=== PATIENT | female | born 1970 | race Caucasian/White ===

== ENCOUNTER 2024-12-11 20:01 | Emergency (ER) | payer OTHER, SELFPAY ==
[2024-12-11 20:03] VITALS: BP 138/96
[2024-12-11 20:30] LABS: Urine Character Clear (Clear)
[2024-12-11 20:34] LABS: Hematocrit 39.2 % (37.0-47.0); Hemoglobin 13.4 g/dL (12.0-16.0); Mean Corp Hgb Conc. 34.2 g/dL (33.0-37.0); Mean Corpuscular Volume 95.4 fL (81.0-99.0); Nucleated Red Blood Cells % 0 %; Platelet Count 193 10^3/uL (130-400); Red Cell Dist. Width 12.3 % (11.5-14.5)
[2024-12-11 20:35] LABS: Urine Red Blood Cell 0-2 /HPF (0-2); Urine Squamous Cell 16-20 /LPF (Few); Urine White Cell 0-2 /HPF (0-5)
[2024-12-11 20:57] LABS: Blood Urea Nitrogen 18 mg/dl (7-17); Calcium 10.0 mg/dl (8.4-10.2); Carbon Dioxide 25 mmol/L (22-30); Chloride 103 mmol/L (98-107); Glucose 101 mg/dl (70-99); Lipase 86 U/L (23-300); Sodium 135 mmol/L (135-145); eGFR > 60.00
[2024-12-12 00:05] VITALS: BP 117/69
--- NOTE | 2024-12-12 00:14 | EDRN ---
patient updated on ultrasound, drinking water to prepare
[2024-12-12 00:42] LABS: HCG, Serum Qualitative Screen Negative
--- NOTE | 2024-12-12 01:52 | ED.GENMED ---
History of Present Illness
General
Chief Complaint: Abdominal Pain
Source: patient and spouse
Exam Limitations: none
Time Seen by Provider: 12/11/24 22:11
Nursing documentation reviewed up to this point in time: agreed with
History of Present Illness
History of Present Illness:
Note:
CHIEF COMPLAINT(S)
Abdominal pain.
HISTORY OF PRESENT ILLNESS
The patient is a 54-year-old female presenting with abdominal pain experienced since the morning of the visit. The patient initially described the pain as a 'gas kind of problem.' Over time, the pain localized to the lower abdomen. The patient
reported that any touch increases the pain, although she noted improvements as time progressed. She likened the pain to menstrual cramping, stating, 'kind of maybe,' when asked about it. No accompanying respiratory symptoms like trouble breathing,
chest pain, or shortness of breath were reported. Additionally, the patient denied experiencing any problems with urination. She mentioned the pain was present upon touch but indicated it was better than earlier.
PLAN
An ultrasound of the ovaries is planned to rule out ovarian torsion. The patient will be instructed to drink fluids to fill the bladder prior to the ultrasound.
PHYSICAL EXAM
General: Alert, no acute distress.
Skin: Warm, dry.
Head: Normocephalic, atraumatic.
Neck: Supple, trachea midline.
Eye, Ears, Nose, Mouth, and Throat: Oral mucosa moist.
Cardiovascular: Normal peripheral perfusion, no edema.
Respiratory: Respirations are non-labored, lung auscultation normal.
Gastrointestinal: Pain in the lower abdomen upon palpation.
Back: No costovertebral angle tenderness.
Musculoskeletal: Normal range of motion, normal strength.
Neurological: Alert and oriented to person, place, time, and situation, no focal neurological deficit observed.
Psychiatric: Cooperative, appropriate mood and affect.
DIFFERENTIAL DIAGNOSIS
The Differential Diagnosis includes, in no particular order and is not limited to:
1. Ovarian torsion
2. Gastroenteritis
3. Urinary tract infection
4. Diverticulitis
5. Appendicitis
6. Pelvic inflammatory disease
7. Endometriosis
8. Irregular uterine bleeding
9. Renal colic
10. Irritable bowel syndrome
CARE-UPDATE
12/12/24 - 01:53
Ultrasound reveals a fibroid at the uterine fundus, 6.8 cm in diameter, likely intramural or subserosal. An intrauterine contraceptive device is present in the endometrial cavity. Endometrial thickness measures 5 mm. Both ovaries appear normal with
no evidence of torsion and no free fluid present.
Disposition:
SUMMARY OF ENCOUNTER
The patient is a 54-year-old female who presented to the emergency department with lower abdominal pain. After evaluation, an ultrasound was performed which showed no abnormalities. There was a finding of blood in the urine. The patients pain
significantly improved during her stay. Despite not having an exact diagnosis, the patient expressed a desire to be discharged and declined further imaging, stating her intention to return if the pain persists and to follow up with her [employer].
DISPOSITION
Discharge
ASSESSMENT
The patient presented with lower abdominal pain. Possible causes include urinary tract infection or other urinary symptoms suggested by the presence of blood in the urine. The ultrasound ruled out ovarian torsion and the patients pain improved
significantly.
PLAN
The patient is advised to follow up with her [employer] and to return to the emergency department if the pain persists or worsens.
INDEPENDENT REVIEW OF LABS AND INTERPRETATION OF TESTS
My independent review of the ultrasound was negative for any acute pathology such as ovarian torsion.
PATIENT EDUCATION AND COUNSELING
The patient was informed about the findings and was advised on the importance of follow-up with her [employer]. She was counseled to return if the symptoms persist or worsen.
FOLLOW-UP INSTRUCTIONS
Please follow up with [employer] and return to the emergency department if the pain persists or worsens.
MEDICAL DECISION MAKING
-Complexity of Data Reviewed: The differential diagnosis included ovarian torsion, urinary tract infection, diverticulitis, appendicitis, pelvic inflammatory disease, endometriosis, irregular uterine bleeding, renal colic, and irritable bowel
syndrome.
-Data:
Category 1
An ultrasound was independently reviewed.
Category 3
Discussion of management with the patient regarding the refusal of further imaging and the decision to discharge with the intention to follow up with [employer].
-Risk:
Consideration of Admission/Observation: Escalation of care including admission/observation was considered given the complexity and risk of the patients presenting complaint, exam findings, and/or underlying comorbidities. However, ultimately, I feel
the patient is safe for outpatient management with close follow up. Reasoning: Work-up reassuring, does not reveal any acute life/organ threatening processes, patients symptoms well controlled upon reevaluation, reexamination is reassuring, vitals
are stable, patient agreeable with discharge, reliable for follow-up.
DIAGNOSIS
1. Hematuria (R31.9)
2. Abdominal pain, unspecified (R10.9)
Phy Exam
Physical Exam
Physical Exam:
.
Course
Orders/Labs/Results
Orders:
Orders
12/11/24 20:18
Basic Metabolic Panel Urgent
Complete Blood Count/With Diff Urgent
HCG, Serum Qualitative Screen Urgent
Comment: ADDED
Lipase Urgent
12/11/24 20:21
Urinalysis Reflex To Culture Urgent
Date Specimen was Collected: 12/11/24
Time Specimen was Collected: 20:07
Urine Microscopic Reflex Cult Urgent
12/11/24 23:01
US Pelvis W Transvag Combined Urgent
Reason For Exam: pelvic pain
12/11/24 23:02
Add On- LAB Urgent
Tests Added?: serum hcg
12/12/24 01:51
Acetaminophen [Tylenol] 1,000 mg .ROUTE .STK-MED ONE
12/12/24 01:52
Acetaminophen [Tylenol] 1,000 mg PO NOW STA
Abnormal Lab Results
12/11/24 12/11/24
20:18 20:21
RBC 4.11 L 10^6/uL
(4.20-5.40)
MCH 32.6 H pg
(27.0-31.0)
Absolute Monos (auto) 1.0 H 10^3/uL
(0.1-0.6)
Lymphocytes % 18.8 L %
(20.5-51.1)
Monocytes % 11.3 H %
(1.7-9.3)
BUN 18 H mg/dl
(7-17)
Creatinine 0.5 L mg/dL
(0.6-1.0)
Glucose 101 H mg/dl
(70-99)
Ur Occult Blood Reflex 1+ A
(Negative)
Urine Bacteria (Reflex) Few A
(Negative)
12/11/24 20:18
12/11/24 20:18
Vital Signs
Initial and Last Documented VS:
Initial Vital Signs
Temp Pulse Resp BP Pulse Ox
97.8 F 90 15 138/96 97
12/11/24 20:03 12/11/24 20:03 12/11/24 20:03 12/11/24 20:03 12/11/24 20:03
Last Documented Vital Signs
Temp Pulse Resp BP Pulse Ox
97.8 F 79 16 117/69 94
12/11/24 20:03 12/12/24 00:05 12/12/24 00:05 12/12/24 00:05 12/12/24 01:55
*Pulse Oximetry
SaO2: 94
Oxygen Mode of Delivery: Room air
Patient hypoxic: no
*Critical Care Note
Total Time (30-74mins, 75-104mins- exclusive of procedures): Not Applicable
Update Note
Update Note:
NAME: SAMY ONEAL
DATE OF EXAM: 12/12/2024
Patient No: [id number]
Physician: SAMINA^Dakotah
Date of : 1970
Past Medical History (entered by Technologist):
Reason For Exam (entered by Technologist):
Other Notes (entered by Technologist):
Additional Information (per [facility]): pelvic pain
ULTRASOUND PELVIS
COMPARISON: None
IMPRESSION:
There is a fibroid at the uterine fundus measuring up to 6.8 cm in diameter that appears to be intramural or subserosal in location. Rhere appears to be an intrauterine contraceptive device in the endometrial cavity. Endometrial thickness is 5 mm.
Nabothian cysts in the cervix.
Right ovary is normal. Normal Doppler flow.
Left ovary is normal. Normal Doppler flow.
No free fluid in the pelvis.
Case results were faxed/electronically transmitted at 0141 EST. If there are any questions please feel free to contact me directly at [phone], ext [phone]. If you cannot reach me at this number, do not leave a voicemail. Please call [phone]
ext [phone] and ask for the next available radiologist.
Ron Lujan M.D.
ED Attending Note
-
Portions of this chart may have been created with voice recognition software.� Occasional wrong word or��sound alike� substitutions may have occurred due to the inherent limitations of voice recognition software.
Discharge Plan
Departure
Patient Disposition: Home (Routine Discharge)
Date of Disposition: 12/12/24
Time of Disposition: 02:05
Patient with high blood pressure during this ER visit?: Yes
Discharge Problem:
Pelvic pain, Hematuria, Fibroid, uterine
Instructions: Uterine Fibroids (DC), Pelvic pain - ED discharge instructions, BLOOD PRESSURE
Referrals:
Arvind Beasley DO [Family Provider, Family Practice]
Activity Restrictions/Additional Instructions:
Thank You for choosing [facility].
It was a pleasure meeting you and taking part in your care. We hope for your continued healing and wellness.
Please read discharge instructions in their entirety. However, they are for general education and may not describe your exact diagnosis at discharge. Information on your ER visit and medical conditions were discussed with you along with appropriate
follow up information...
If indicated, please take your medications as instructed and indicated on discharge paperwork.
Please schedule a follow up appointment as directed. Call to schedule an appointment
Please return to the emergency department with ANY change in, persisting, or worsening of symptoms. If any of your symptoms do not improve, or persist, or become more severe within 6-12 hours, please return to the emergency department for further
care.
Please return to the emergency department if you develop a headache, neck pain/stiffness, fever greater than 100.4F, chest pain, shortness of breath, persistent nausea, vomiting, slurred speech, difficulty walking, numbness/tingling, weakness, signs
of infection or any other symptoms that are worrisome to you.
If you have any questions or concerns please do not hesitate to call the Hospital at or E-mail me directly at [email or web address]
Interventions
Interventions:
*Risk Screen - Suicide Last Done: 12/11/24 20:03
*General Assessment Last Done: 12/11/24 20:03
*Neglect/Abuse Screening Last Done: 12/11/24 20:03
*ED- Fall Risk Assessment Last Done: 12/11/24 21:12
*ED COVID-19 Vaccine History Last Done: 12/11/24 21:12
*Nursing Disposition Last Done: 12/12/24 03:03
WR-Waqydx-Ayepudnssc Assessment Last Done: 12/11/24 21:12
Discharge Date and Time
Discharge Date/Time: 12/12/24 03:04
Print Language: YAKUT
[2024-12-12] MEDS: TYLENOL 1000 MG PO (01:53)
--- NOTE | 2024-12-12 01:54 | EDRN ---
Patient reports having a headache, Dr. Brady aware and meds ordered and give.
== END 2024-12-12 03:04 | disposition home or self-care (01) ==
LOC: EMR 20:01
PROVIDERS: Student in an Organized Health Care Education/Training Program; EMERGENCY PHYSICIAN Student in an Organized Health Care Education/Training Program; FAMILY PHYSICIAN Family Medicine Adult Medicine
DX: R10.2 Pelvic and perineal pain (principal); R31.9 Hematuria, unspecified; D25.9 Leiomyoma of uterus, unspecified; N88.8 Other specified noninflammatory disorders of cervix uteri; R51.9 Headache, unspecified; I10 Essential (primary) hypertension; E78.5 Hyperlipidemia, unspecified; Z97.5 Presence of (intrauterine) contraceptive device
CPT/HCPCS: 99284; 76830; 76856; 80048; 81003; 81015; 83690; 84703; 85025